=== PATIENT | female | born 1980 | race African-American/Black ===

== ENCOUNTER 2017-07-26 17:15 | Emergency (ER) | payer SELFPAY, OTHER ==
[2017-07-26 18:23] LABS: URINE BLOOD (Dip) POC Trace-intact (NEGATIVE); URINE GLUCOSE (Dip) POC Negative (NEGATIVE); URINE KETONES (Dip) POC Trace (NEGATIVE); URINE LEUKOCYTE EST (Dip) POC Negative (NEGATIVE); URINE NITRITE (Dip) POC Negative (NEGATIVE); URINE TOTAL PROTEIN POC Negative (NEGATIVE)
[2017-07-26] MEDS: HYDROCODONE/APAP (5/325) TAB PO (19:06)
[2017-07-26] MEDS: KETOROLAC 30 MG INJ IM (19:06)
== END 2017-07-26 19:59 | disposition home or self-care (01) ==
LOC: FTE 17:15
DX: M54.5 Low back pain (principal); J45.909 Unspecified asthma, uncomplicated; F17.210 Nicotine dependence, cigarettes, uncomplicated; Z91.040 Latex allergy status
CPT/HCPCS: 72072; 72100; 81003; 81025; 96372; 99284-25

== ENCOUNTER 2018-08-13 20:19 | Emergency (ER) | payer OTHER ==
[2018-08-13] MEDS ORDERED: ALBUTEROL 0.5% (NEB) 2.5 MG/0.5 ML AMP INH ×2 (21:30)
[2018-08-13] MEDS ORDERED: IPRATROPIUM (NEB) 0.5 MG/2.5 ML AMP INH (21:30)
[2018-08-13] MEDS: METHYLPREDNISOLONE 125 MG INJ IV (21:53)
[2018-08-13] MEDS: KETOROLAC 30 MG INJ IV (21:54)
[2018-08-13] MEDS: IPRATROPIUM (NEB) 0.5 MG/2.5 ML AMP HHN (22:05)
[2018-08-13] MEDS: LEVALBUTEROL (NEB) 1.25 MG/0.5 ML AMP HHN (22:05)
[2018-08-14] MEDS ORDERED: IPRATROPIUM (NEB) 0.5 MG/2.5 ML AMP HHN
[2018-08-14] MEDS: MAGNESIUM SULFATE 2 GM/50 ML 50 ML IVPB (00:21)
[2018-08-14] MEDS: PROMETHAZINE/CODEINE 5ML CUP PO (00:21)
[2018-08-14] MEDS: IPRATROPIUM (NEB) 0.5 MG/2.5 ML AMP HHN (00:37)
[2018-08-14] MEDS: LEVALBUTEROL (NEB) 1.25 MG/0.5 ML AMP HHN (00:37)
[2018-08-14] MEDS: LEVOFLOXACIN 750 MG TABLET PO (01:59)
== END 2018-08-14 02:24 | disposition home or self-care (01) ==
LOC: FTE 08-14 02:24
DX: J45.901 Unspecified asthma with (acute) exacerbation (principal); J18.1 Lobar pneumonia, unspecified organism; F17.210 Nicotine dependence, cigarettes, uncomplicated; Z71.6 Tobacco abuse counseling; Z85.850 Personal history of malignant neoplasm of thyroid; Z91.040 Latex allergy status
CPT/HCPCS: 71045; 81025; 94644; 94645; 96374; 96375; 99285-25